=== PATIENT | male | born 1975 | race Hispanic/Latino ===

== ENCOUNTER 2018-02-17 10:31 | Emergency (ER) | payer SELFPAY ==
[~2018-02-17] VITALS: Ht 167.6 cm; Wt 68.0 kg
--- NOTE | 2018-02-17 11:44 | Diagnostic Imaging Report ---
Exam: Rib series 3 views History: Pain Comparison: None. Findings: No fracture or malalignment. No abnormal soft tissue calcification or soft tissue defect. Impression: No displaced rib fracture Signed by: Dr. Jerrell Arango M.D. on 02/17/2018 11:40 AM
[2018-02-17] MEDS ORDERED: ALBUTEROL/IPRATROPIUM 3 ML NEB NEB ONE (12:00)
[2018-02-17] MEDS ORDERED: PREDNISONE 20 MG TAB PO ONE (12:15)
[2018-02-17] MEDS ORDERED: ACETAMINOPHEN/CODEINE 300MG - 30MG TAB PO ONE (12:15)
== END 2018-02-17 15:33 | disposition home or self-care (01) ==
LOC: ER 10:31
DX: R05 Cough (principal); J20.9 Acute bronchitis, unspecified; J02.9 Acute pharyngitis, unspecified; Z87.891 Personal history of nicotine dependence
CPT/HCPCS: 71101; 94640; 99284

== ENCOUNTER 2018-06-10 07:48 | Emergency (ER) | payer OTHER ==
[~2018-06-10] VITALS: Ht 167.6 cm; Wt 70.8 kg
--- OUTSIDE RECORDS SUMMARY | 2018-06-10 07:50 | XMS REPORT ---
[facility] Address Unknown Phone Unavailable Care Team Providers Care Chemical Engineering Professor Name Role Phone [place] BROWNING Unavailable Unavailable Problems This patient has no known problems. Allergies, Adverse Reactions, Alerts This patient has no known allergies or adverse reactions. Medications This patient has no known medications. Results Test Description Test Time Test Comments Text Results Atomic Results Result Comments RIBS UNILAT W/CXR 2018-02-17 11:39:00 [place] [id number] Patient Name: ALBER STOKES MR #: [id number] : 1975 Age/Sex: 42/M Req #: [id number] Adm Physician: Ordered by: STEPHON MUÑOZ CUSTOMER SERVICE CLERK Report #: [id number] Location: ER Room/Bed: Procedure: [id number] DX/RIBS UNILAT W/CXR Exam Date: 02/17/18 Exam Time: 1120 REPORT STATUS: Signed Exam: Rib series 3 views History: Pain Comparison: None. Findings: No fracture or malalignment. No abnormal soft tissue calcification or soft tissue defect. Impression: No displaced rib fracture Signed by: Dr. Hanny Dias M.D. on 02/17/2018 11:40 AM Dictated By: HANNY DIAS MD [id number] Transcribed By: REYMUNDO on 02/17/18 1140 COPY TO: STEPHON MUÑOZ NP
[2018-06-10] MEDS ORDERED: KETOROLAC TROME10 MG PO (08:19)
[2018-06-10] MEDS ORDERED: TESSALON PERLE100 MG PO (08:19)
[2018-06-10] MEDS ORDERED: AUGMENTIN 875-1 EACH PO (08:19)
[2018-06-10] MEDS ORDERED: SUDAFED 12 HOU120 MG PO (08:19)
[2018-06-10 08:36] VITALS: BP 139/81
== END 2018-06-10 08:45 | disposition home or self-care (01) ==
LOC: FSED 07:48
DX: H65.01 Acute serous otitis media, right ear (principal); J20.9 Acute bronchitis, unspecified
CPT/HCPCS: 99282

== ENCOUNTER 2018-06-22 04:27 | Emergency (ER) | payer OTHER ==
[~2018-06-22] VITALS: Ht 167.6 cm; Wt 70.8 kg
[~2018-06-22 04:27] MED LIST: AUGMENTIN 875-1 EACH PO; KETOROLAC TROME10 MG PO; SUDAFED 12 HOU120 MG PO; TESSALON PERLE100 MG PO
[2018-06-22 05:17] LABS: BASOPHILS # (AUTO) 0.1 (0.0-0.1); BASOPHILS % 0.7 % (0.0-1.0); EOSINOPHILS # (AUTO) 0.2 (0.0-0.4); EOSINOPHILS % 2.4 % (0.0-6.0); HEMATOCRIT 38.9 % (38.2-49.6); HEMOGLOBIN 12.5 g/dL (14.0-18.0); LYMPHOCYTES # (AUTO) 1.6 (1.0-3.2); LYMPHOCYTES % 17.5 % (18.0-39.1); MEAN CORPUSCULAR HEMOGLOBIN 26.1 pg (28-32); MEAN CORPUSCULAR HGB CONC 32.1 g/dL (31-35); MEAN CORPUSCULAR VOLUME 81.2 fL (81-99); MONOCYTES # (AUTO) 0.7 (0.2-0.8); MONOCYTES % 7.7 % (4.4-11.3); NEUTROPHILS # (AUTO) 6.5 (2.1-6.9); NEUTROPHILS % 71.3 % (38.7-80.0); PLATELET COUNT 279 x10e3/uL (140-360); RED BLOOD COUNT 4.79 x10e6/uL (4.3-5.7); RED CELL DISTRIBUTION WIDTH 15.5 % (11.7-14.4)
[2018-06-22] MEDS ORDERED: SODIUM CHLORIDE 0.9% 1000ML 1,000 ML IV STA (05:31)
[2018-06-22 05:34] LABS: ALANINE AMINOTRANSFERASE 40 IU/L (0-55); ALBUMIN 3.8 g/dL (3.5-5.0); ALBUMIN/GLOBULIN RATIO 1.2 (0.8-2.0); ALKALINE PHOSPHATASE 81 IU/L (40-150); BLOOD UREA NITROGEN 10 mg/dL (7-26); BUN/CREATININE RATIO 12 (6-25); CALCIUM 8.9 mg/dL (8.4-10.2); CARBON DIOXIDE 25 mmol/L (22-29); CHLORIDE 105 mmol/L (98-107); CREATININE, SERUM 0.83 mg/dL (0.72-1.25); EST GLOMERULAR FILTRATION RATE > 60 ML/MIN (60-); GLUCOSE 108 mg/dL (74-118); SODIUM 138 mmol/L (136-145)
[2018-06-22] MEDS ORDERED: KETOROLAC TROMETHAMINE 30 MG/ML VIAL IV STA (06:01)
--- NOTE | 2018-06-22 06:21 | Diagnostic Imaging Report ---
EXAM: CT ABDOMEN AND PELVIS WITH IV CONTRAST INDICATION: Left abdominal pain COMPARISON: None TECHNIQUE: The abdomen and pelvis were scanned using a multidetector helical scanner. Coronal and sagittal reformations were obtained. Dose modulation, iterative reconstruction, and/or weight based adjustment of the mA/kV was utilized to reduce the radiation dose to as low as reasonably achievable. Routine protocol performed. IV Contrast: 100 cc Isovue-370 Oral Contrast: None CTDIvol has been reviewed. It is below the limits set by the Radiation Protocol Committee (RPC). FINDINGS: LOWER THORAX: No consolidations LIVER: No masses BILIARY: Multiple gallstones in an otherwise unremarkable gallbladder. SPLEEN: No masses PANCREAS: No masses ADRENALS: No nodules KIDNEYS: No enhancing masses. No hydronephrosis. No nephroureterolithiasis. GI TRACT: No wall thickening or obstruction. Normal appendix. VESSELS: Normal PERITONEUM/RETROPERITONEUM: No free air or fluid LYMPH NODES: No lymphadenopathy REPRODUCTIVE ORGANS: Normal BLADDER: Normal SOFT TISSUES: Normal BONES: No suspicious bone lesions. IMPRESSION: No CT findings to explain patient's left-sided pain. No nephroureterolithiasis or hydronephrosis. No diverticulitis. Cholelithiasis without cholecystitis. Signed by: Dr. Brittanie Foley M.D. on 06/22/2018 6:17 AM
[2018-06-22] MEDS ORDERED: KETOROLAC TROME10 MG PO (06:27)
[2018-06-22] MEDS ORDERED: TYLENOL WITH C1 EACH PO (06:27)
[2018-06-22 06:37] VITALS: BP 146/81
== END 2018-06-22 06:43 | disposition home or self-care (01) ==
LOC: FSED 04:27
DX: R10.32 Left lower quadrant pain (principal); M54.5 Low back pain; R05 Cough
CPT/HCPCS: 36415; 74177; 80053; 81003; 85025; 99284; J7030

== ENCOUNTER 2022-02-19 19:41 | Emergency (ER) | payer OTHER ==
[~2022-02-19] VITALS: Ht 167.6 cm; Wt 70.8 kg
[~2022-02-19 19:41] MED LIST changes: +TYLENOL WITH C1 EACH PO
[2022-02-19 20:40] LABS: BASOPHILS # (AUTO) 0.1 (0.0-0.1); BASOPHILS % 0.6 % (0.0-1.0); EOSINOPHILS # (AUTO) 0.2 (0.0-0.4); EOSINOPHILS % 1.7 % (0.0-6.0); HEMATOCRIT 42.5 % (38.2-49.6); HEMOGLOBIN 13.6 g/dL (14.0-18.0); LYMPHOCYTES # (AUTO) 1.9 (1.0-3.2); LYMPHOCYTES % 20.6 % (18.0-39.1); MEAN CORPUSCULAR HEMOGLOBIN 28.2 pg (28-32); MONOCYTES # (AUTO) 0.6 (0.2-0.8); MONOCYTES % 6.5 % (4.4-11.3); NEUTROPHILS # (AUTO) 6.6 (2.1-6.9); NEUTROPHILS % 70.3 % (38.7-80.0); PLATELET COUNT 278 x10e3/uL (140-360); RED BLOOD COUNT 4.83 x10e6/uL (4.3-5.7); RED CELL DISTRIBUTION WIDTH 15.5 % (11.7-14.4)
[2022-02-19 20:58] LABS: CREATINE KINASE 87 IU/L (30-200)
[2022-02-19 21:00] LABS: ALBUMIN 4.1 g/dL (3.5-5.0); ALBUMIN/GLOBULIN RATIO 1.2 (0.8-2.0); CALCIUM 9.3 mg/dL (8.4-10.2); CREATININE, SERUM 0.89 mg/dL (0.72-1.25)
[2022-02-19 21:46] VITALS: BP 125/91
== END 2022-02-19 21:28 | disposition home or self-care (01) ==
LOC: ER 19:47
DX: R51.9 Headache, unspecified (principal); U09.9 Post COVID-19 condition, unspecified; R42 Dizziness and giddiness
CPT/HCPCS: 36415; 70450; 80053; 82550; 82553; 84484; 85025; 93005; 99284